=== PATIENT | female | born 1955 | race Caucasian/White ===

== ENCOUNTER → 2016-09-13 | Outpatient (CLI) | payer OTHER | LOC: FIMAGING 13:11 | PROVIDERS: ATTEND Family Medicine | DX: Z12.31 Encounter for screening mammogram for malignant neoplasm of breast (principal) | CPT/HCPCS: G0202 ==

== ENCOUNTER 2018-01-31 10:26 | Inpatient (IN) | payer OTHER ==
[~2018-01-31 10:26] MED LIST: TRANEXAMIC ACID 1,000 MG in NS 100 ML IV ONE; VANCOMYCIN 750 MG in D5W 150 ML IV ONE; VANCOMYCIN PHARMACY TO DOSE MISC ONE
[2018-01-31] MEDS ORDERED: LR 1,000 ML IV SCH (10:45)
[2018-01-31] MEDS ORDERED: LIDOCAINE 1% 2 ML INJ ID PRN (10:46)
[2018-01-31] MEDS ORDERED: LR 1,000 ML IV ONE (10:46)
[2018-01-31] MEDS ORDERED: TOBRAMYCIN SULFATE ONE (11:27)
--- NOTE | 2018-01-31 11:28 | PDHPUP ---
History & Physical Update H&P update statement: This history and physical update is based on an assessment of the patient which was completed after admission or registration (within 24 hours), but prior to the surgery/procedure. H&P update: H&P reviewed & patient examined, no change in patient's condition since H&P completed (Patient seen/examined in conjunction with Dr. Armijo.)
[2018-01-31] MEDS ORDERED: BUPIVACAINE 0.25% 30 ML SDV ONE (12:10)
[2018-01-31] MEDS ORDERED: MIDAZOLAM 2 MG/2 ML VIAL IVP ONE (12:10)
--- NOTE | 2018-01-31 12:10 | PDANEPAE ---
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 LLE with some numbness, tingling r/t back surgery - Endocrine History Hx Diabetes: No Endocrine History Comment: HYPOTHYROID - Renal History Hx Renal Disorders: No - Liver History Hx Hepatic Disorders: No - Neurological & Psychiatric Hx Hx Neurological and Psychiatric Disorders: No Neurological / Psychiatric History Comment: SITUATIONAL ANXIETY - Cancer History Hx Cancer: No - Congenital Disorder History Hx Congenital Disorders: No - GI History Hx Gastrointestinal Disorders: Yes Gastrointestinal History Comment: GERD - Other Health History Other Health History: HX ANEMIA - WAS TAKING LARGE AMT IBUPROFEN. Right shoulder joint infection - Chronic Pain History Chronic Pain: Yes (R SHOULDER, BACK, SCIATICA) - Surgical History Prior Surgeries: HYSTERECTOMY. R TKA. R SHOULDER REPLACEMENT. SPINAL SURG- LAMINECTOMY & FUSION. BUNIONECTOMY. BREAST REDUCTION. L KNEE SCOPE. CARPAL TUNNEL BRIT. FINGER SURGERIES ANE Review of Systems Review of Systems: - Exercise capacity METS (RN): 4 METS ANE Patient History - Allergies Allergies/Adverse Reactions: adhesive tape [Adhesive Tape] Allergy (Verified 01/26/18 12:31) skin tears & sloughs cephalexin monohydrate [From Keflex] Allergy (Verified 01/26/18 12:31) Rash Sulfa (Sulfonamide Antibiotics) Allergy (Verified 01/26/18 12:31) Rash - Home Medications Home medications: home medication list seen and reviewed Home Medications: Calcium Carbonate [Oyster Shell Calcium 500 mg (*)] 500 mg PO BID 11/06/17 [ Last Taken 01/26/18] Cetirizine [ZyrTEC 10 mg (*)] 10 mg PO DAILY 11/06/17 [Last Taken 01/31/18 07:00 ] Cholecalciferol Vit D3 [Vitamin D3 (*)] 2,000 units PO DAILY 11/06/17 [Last Taken 01/26/18] Cyclobenzaprine [Flexeril 10 MG (*)] 10 mg PO HS 11/06/17 [Last Taken 01/30/18 23:59] Ibuprofen [Motrin (*)] 200 mg PO 5XD 11/06/17 [Last Taken 01/26/18] Magnesium Oxide [Magnesium Oxide 400 mg (*)] 800 mg PO DAILY@12 11/06/17 [Last Taken 01/26/18] Multivitamins [Multivitamin (*)] 1 each PO DAILY 11/06/17 [Last Taken 01/26/18] Niacin [Niacin 500 mg (*)] 500 mg PO BID 11/06/17 [Last Taken 01/26/18] Teriparatide [Forteo] 2.4 ml SQ DAILY@15 11/06/17 [Last Taken 01/30/18 14:00] traMADol [Ultram 50 mg (*)] 50 mg PO 5XD 11/06/17 [Last Taken 01/31/18 07:00] Ferrous Sulfate [Ferrous Sulf 325 MG (*)] 325 mg PO DAILY18 01/24/18 [Last Taken 01/26/18] Levothyroxine [Synthroid 50 mcg (*)] 50 mcg PO DAILY06 01/24/18 [Last Taken 02:00] Magnesium Oxide [Magnesium Oxide 400 mg (*)] 400 mg PO DAILY18 01/24/18 [Last Taken 01/26/18] Pseudoephedrine HCl [Sudafed] 30 mg PO BID 01/24/18 [Last Taken 01/31/18 07:00] Ranitidine HCl [Zantac] 150 mg PO DAILY 01/26/18 [Last Taken 01/30/18] - NPO status NPO Since - Liquids (Date): 01/31/18 NPO Since - Liquids (Time): 09:00 NPO Since - Solids (Date): 01/30/18 NPO Since - Solids (Time): 23:00 - Smoking Hx Smoking Status: Never smoked - Family Anes Hx Family Hx Anesthesia Complications: NEG ANE Labs/Vital Signs - Vital Signs Blood Pressure: 165/95 Heart Rate: 96 Respiratory Rate: 17 O2 Sat (%): 94 Height: 5 ft Weight: 43.091 kg ANE Physical Exam - Airway Neck exam: FROM Mallampati Score: Class 2 Mouth exam: normal dental/mouth exam - Pulmonary Pulmonary: no respiratory distress - Cardiovascular Cardiovascular: regular rate and rhythym - ASA Status ASA Status: II ANE Anesthesia Plan Anesthesia Plan: general endotracheal anesthesia Regional Anesthesia: single shot NB
[2018-01-31] MEDS ORDERED: EPINEPHrine 1 MG/ML INJ ONE (12:11)
[2018-01-31] MEDS ORDERED: BACITRACIN 50,000 UNITS/10 ML SYR IRR ONE (12:11)
[2018-01-31] MEDS ORDERED: PROPOFOL/EMULSION 500 MG/50 ML BOTTLE IV ONE (12:19)
[2018-01-31] MEDS ORDERED: fentaNYL 250 MCG/5 ML INJ ONE (12:22)
[2018-01-31] MEDS ORDERED: VANCOMYCIN 1 GM VIAL ONE (12:25)
[2018-01-31] MEDS ORDERED: HYDROmorphONE/DILAUDID 2 MG/ML INJ IVP PRN (16:25)
[2018-01-31] MEDS ORDERED: ONDANSETRON 4 MG/2 ML VIAL IVP PRN (16:25)
[2018-01-31] MEDS ORDERED: fentaNYL 100 MCG/2 ML INJ IVP PRN (16:25)
[2018-01-31] MEDS ORDERED: NALOXONE HCL 0.4 MG/ML INJ IVP PRN (16:25)
--- NOTE | 2018-01-31 16:50 | POSTOPPROG ---
Post Op Note Date of Operation: 01/31/18 Surgeon: Marcelo Armijo Forder Operator: FRANKLYN Pond Anesthesiologist: Dr Tomlin Anesthesia: GET(General Endotracheal) Pre-op Diagnosis: Infected R rTSA with rachel-prosthetic fx/nonunion Post-op Diagnosis: Same Indication: Infection Procedure: R shoulder rTSA explant/HWR, I&D shoulder and humeral nonunion, spacer/IMN Findings: Periprosthetic purulent material, osteolysis, gross prosthetic loosening Inf/Abcess present in the surg proc area at time of surgery?: Yes Depth: Organ Space (R shoulder and humerus) EBL: 100-500 (100cc) Complications: None
[2018-01-31] MEDS ORDERED: oxyCODONE IR 5 MG TAB PO PRN (17:39)
[2018-01-31] MEDS ORDERED: ONDANSETRON DISINTEGRATING 4 MG TAB PO PRN (17:39)
[2018-01-31] MEDS ORDERED: OXYCODONE/APAP 5/325 TAB PO PRN (17:45)
--- NOTE | 2018-01-31 19:38 | PDMN ---
Medical Necessity Medical necessity: Pt meets inpt criteria per MD order and Musculoskeletal GRG, R shoulder rTSA explant/HWR, I&D shoulder and humeral nonunion, spacer/IMN, CPT 44274, [facility] inpt only list, approved inpt 01/31-02/01 auth # [id number]. Anticipate>2MN for above surgery/postop care.
[2018-01-31] MEDS: HYDROCODONE/APAP 5/325 TAB PO PRN (20:49)
[2018-02-01] MEDS: HYDROCODONE/APAP 5/325 TAB PO PRN ×5 (00:38→20:59)
--- NOTE | 2018-02-01 04:44 | GOP ---
DATE OF OPERATION: 01/31/2018 SURGEON: Marcelo Armijo MD HEALTH ADMINISTRATION TEACHER: Sharda Parra PA-C. ANESTHESIA: General with regional ANESTHESIOLOGIST: Dr. Tomlin. PREOPERATIVE DIAGNOSIS: 1. Infected right reverse total shoulder arthroplasty. 2. 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 POSTOPERATIVE DIAGNOSIS: 1. Infected right reverse total shoulder arthroplasty. 2. 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 PROCEDURE PERFORMED: 1. Right shoulder explantation of reverse total shoulder arthroplasty and proximal humerus cerclage wire removal. 2. Right shoulder and humeral nonunion incision, irrigation, drainage and extensive debridement. 3. Right shoulder provisional hemiarthroplasty cement antibiotic spacer with long-stem intramedullary fixation humeral shaft nonunion. FINDINGS: Atrophic nonunion at the level of the humeral shaft fracture with > 100% displacement and gross instability. There was extensive scar in this zone consistent with nonunion as well as a serous fluid collection. No obvious gross purulence at the level of the nonunion. Right shoulder was with a completely rotated 180 degree reverse total shoulder arthroplasty due to the patient's fracture and displacement of the proximal humerus. Given the positioning, the inferior glenoid neck was with significant bone loss and notching. The humeral stem was grossly loose. The glenoid prosthesis appeared consistent with limited bony ingrowth. There was significant slimy membranous layer around the glenoid base plate consistent with possible infection. There was additional extensive membrane and lining of the intramedullary canal of the humerus, particularly the proximal segment consistent with membranous layers associated with low-grade infection. All hardware was explanted without any fracture. Overall bone quality was extremely poor with extremity thin cortices , soft and fragile bone. This is consistent with her pre-op diagnosis of severe osteoporosis. SPECIMENS: A series of multiple tissue cultures were sent for aerobic, anaerobic and fungal cultures with instructions to hold these cultures for 14 days. These cultures were taken from the humeral nonunion site as well as the humeral and glenoid sides of the shoulder arthroplasty. In addition, 2 different pathology sections of tissue were taken, i.e. tissue biopsy, and sent for formal pathology at the level of the nonunion to evaluate for any kind of abnormal appearing tissue or growth that could have contributed to her fracture at the stem of her humeral prosthesis. ESTIMATED BLOOD LOSS: 100 cc. INDICATIONS: This is a 62-year-old female, who suffered a pathologic type fracture of her right humeral shaft just distal to her tip of the stem. Initial reverse shoulder arthroplasty was performed by my partner, Dr. Bolivar. The patient was initially managed nonoperatively. Due to her extensive bone loss, she was evaluated for infection by Dr. Bolivar with aspiration, which was found to be negative. She was also seen by Dr. Reich, a bone installer inspector final, who found her to have severe osteoporosis. She was started on Forteo and continues this therapy. Due to high clinical index of suspicion, I did perform an arthroscopic shoulder biopsy, which confirmed infection with Staphylococcus epidermidis and hominis. See microbiology for additional information. Given the above with consultation of the Infectious Disease service, explantation and the above-listed surgery was recommended. The risks, benefits, and alternatives were discussed with the patient. All of her questions were answered prior to surgery. Please see history and physical for additional information. Further complicating her case was that she did develop a nonunion at the fracture site, which would also be provisionally addressed at the same time of surgery. DESCRIPTION OF PROCEDURE: Yari was identified in the preop holding area, and her right shoulder was signed designating the operative site. The patient was confirmed in bilateral lower extremity BROOK[place]N hose and SCDs. 750 mg of IV vancomycin was held for provision to the patient via IV after all cultures were obtained. The patient was taken back to the operating room and placed supine on the OR table. Just prior to general anesthesia, 1 g of TXA was provided. Once the area was stabilized, the patient was carefully positioned in the beach chair position. Great care was taken to position her head and neck in neutral position by myself as well as the anesthesia physician, and as well to place abundant padding around the head for the head positioning device. Both knees were floated over a series of well-padded pillows. Foam eggcrate padding was placed around both heels and ankles. The left upper extremity was wrapped with foam eggcrates and padding from the middle upper arm through the wrist and hand with great care taken to protect the ulnar nerve. The right upper extremity was then prepped and draped in usual sterile manner. The patient's prior deltopectoral incision from her primary shoulder arthroplasty was used and this was extended approximately an additional 12 cm in order to perform an extensile approach down to the level of her humeral nonunion. A lazy-S type incision was necessary in order to extend the distal portion of her deltopectoral incision, which was somewhat medial, down to the anterolateral approach of the humerus. A full-thickness dermal incision was made with a #10 blade. Careful dissection was taken down through the subcutaneous fat. The patient had rather severe atrophy of her muscles as this upper extremity has been with limited use over the last year or greater. The prior scar bed at the level of deltopectoral approach was relatively dense. Meticulous dissection was utilized in order to dissect down to the appropriate level and interval. Due to the rotation of her humerus, the overall anatomy was greatly distorted. Meticulous and careful dissection were used throughout to assure appropriate protection of all vessels and nerves throughout the surgical site. Most proximally at the level of the rotator interval, the shoulder was entered with an arthrotomy and a swab was taken and sent for culture. Next, careful dissection was taken down along the anterior portion of the humerus. Unfortunately, the patient has relatively severe and dramatic proximal humerus bone loss. Subperiosteal dissection was taken down to the insertion of the pectoralis tendon on the proximal humerus and the pectoralis tendon was left intact. Blunt dissection with my finger was used to carefully mobilize the subdeltoid gutter and bursa. With this achieved, dissection was then taken down more distally. A standard anterolateral approach to the humerus was used distally from approximately 2 cm proximal to the nonunion site down to approximately 2 cm distal to the nonunion site. With this exposure of the bony ends and through standard brachialis splitting approach, dissection was kept lateral to the biceps. The cephalic vein was dissected free and kept medial throughout the dissection. Again, serous fluid was encountered, and this was swabbed and sent for culture. Once both sites were appropriately opened and evaluated, soft tissue cultures were taken from the periprosthetic tissues around the proximal humerus as well as the nonunion tissues around the both proximal and distal ends of the humerus. The intramedullary portion of the humerus were sent for additional cultures down to the level of the nonunion site. Once this was completed, the glenosphere was removed using standard Exactech technique. Underneath the glenosphere was significant purulent appearing slime, and this was carefully captured with a rongeur and then sent for additional culture. Once all cultures were sent, IV vancomycin was provided by the anesthesia service. The glenoid base plate was carefully removed, again using standard Exactech technique. With gentle backslapper use of their standard Jig, the glenoid was removed without any significant bone attached to the glenoid. There was no significant bone within the central cage of the glenoid prosthesis. The proximal humeral poly insert was removed using standard technique. Next, the shear nut was carefully backed away and the humeral base plate was carefully disengaged from the proximal humeral prosthetic. Next, the humeral component was found to be loose; and therefore, with careful technique, it was very gently and carefully malleted out from the intramedullary canal with great care taken to avoid any fracture to her very thin and fragile osteoporotic bone. The stem came out in its entirety with only small areas of cement left in the humeral canal. These were carefully removed with a pituitary rongeur as well as a curette. Finally, a cerclage wire was around the proximal humerus, and this was carefully dissected free of soft tissues. This was then carefully removed from the proximal humerus in its entirety without any hardware left within the shoulder. Once all hardware was removed, the shoulder was copiously irrigated with sterile saline. Distally at the level of the nonunion, further dissection was performed and only at the level of the bony ends was Subperiosteal dissection used to remove the extensive scar tissue and expose the end of the bony nonunion. There was copious scar interposed within the nonunion site, and this was carefully resected. Using no paralysis, the Bovie cautery was used very carefully in order to confirm no obvious transmission to the radial nerve as this was very close in proximity to the dissection site. Once appropriate debridement was achieved, I was able to achieve a relatively gross realignment of the humeral nonunion to eventually pass an intramedullary prosthesis. Once this was completed, I began working on the back table to create a custom sized and fit antibiotic cement spacer for this patient's humerus and shoulder while my wet process assistant head miller copiously irrigated the shoulder with a total of 3 L of bacitracin saline. On the back table, I used a 40-Setswana chest tube as well as a standard bulb syringe to create a humeral head shaped proximal portion of the cement spacer. Vancomycin and tobramycin were used in each of the 2 batches, 1 for the intramedullary portion and the other for the head portion. A threaded Steinmann pin was bent to approximately 135 degrees in order to create this spacer appropriately fitted for the patient's anatomy. The distal section of the humerus required reaming with a standard iogynech drapery sewer hand in order to open the proximal aspect of this canal, i.e. the nonunion site to an appropriate diameter of approximately 10 mm in order to fit this 9 mm diameter intramedullary shaft of the spacer. Once all work was completed, the spacer was carefully positioned in proximal to distal manner, i.e., advanced down through the intramedullary canal of the proximal humeral segment and then across the nonunion site into the distal humeral segment. This was performed with the shoulder in appropriate rotation based on overall epicondylar axis of the elbow as well as the shape and morphology of the nonunion and palpation of what was left of the proximal bicipital groove. The prosthesis was placed in approximately 20 degrees of retroversion in order to reapproximate normal anatomy. Due to the extensive scar and deformity of the glenoid, relatively poor reduction was achieved; however, things were generally well lined up. Once this was completed and the provisional fixation of the nonunion as well as the spacer was in place, the shoulder was reduced and taken through range of motion and found to be of appropriate quality and position. Closure was then begun. The capsular split, i.e. rotator interval and down through what was previously subscapularis and capsule, were carefully repaired with multiple #1 PDS sutures. This achieved appropriate restraint to anterior escape of the spacer. Next, the deep dermal layer of the wound was closed with multiple interrupted 2-0 PDS sutures. The skin was formally closed with tyrone. Meticulous hemostasis was maintained throughout the surgery; and therefore, no drain was indicated. Postoperative sterile surgical dressings were applied. The right upper extremity was positioned across the patient's abdomen with the elbow flexed approximately 90 degrees in a shoulder immobilizer. She was then returned to the supine position. The anesthesia service then took over and woke the patient up. TOURNIQUET TIME: None. DRAINS: None. IMPLANTS: I created a custom-sized and fit right shoulder antibiotic impregnated cement hemiarthroplasty in order to provide local elution of antibiotics at the level of the humeral shaft nonunion and shoulder, while providing temporary and provisional stability at the nonunion site. No other implants were placed. COMPLICATIONS: None. DISPOSITION: The patient was extubated and transferred to PACU in stable condition. /[id number]/MODL MTDD
[2018-02-01] MEDS: LEVOTHYROXINE 50 MCG TAB PO SCH (04:49)
[2018-02-01 05:23] LABS: PLATELET COUNT 245 10^3/uL (150-400)
[2018-02-01 05:29] LABS: INR 0.97 (0.83-1.16); PROTIME(PATIENT) 13.1 SEC (12.0-15.0)
[2018-02-01] MEDS: ASPIRIN EC 325 MG TAB PO SCH (08:55)
[2018-02-01] MEDS: NIACIN 500 MG TAB PO SCH ×4 (08:55→18:36)
[2018-02-01] MEDS: PSEUDOEPHEDRINE HCL 30 MG TAB PO SCH ×2 (08:55→20:38)
[2018-02-01] MEDS: CETIRIZINE 10 MG TAB PO SCH (08:55)
[2018-02-01] MEDS: FAMOTIDINE 20 MG TAB PO SCH ×4 (08:55→18:36)
--- NOTE | 2018-02-01 09:38 | SOAPPROG ---
<Sharda Parra S - Last Filed: 02/01/18 10:39> SOAP Progress Note Assessment/Plan: Assessment: POD #1 s/p right shoulder hardware removal with cement placer; being followed by I/D as well regarding antibiotics. Overall doing well. Plan: Maintain dry dressing over wound site, do not change unless discussed with our office first. Contact us with abnormal bleeding/oozing/discharge, change in heat or color around wound site or of extremity. No weight bearing to right upper extremity. Maintain sling. Can begin range of motion for right wrist and hand. DVT Prophylaxis: SCDs, IS, BROOK[place]N hose, ASA 325mg daily for 2 weeks. Antibiotics: Continue recommendations per I/D, appears the plan is PICC line with her likely to D/C following PICC placement if meets floor criteria. PT/OT for ROM of right wrist and hand. Ok to D/C once stable and cleared by ID, CM, PT/OT and floor criteria; appreciate their reccs. Patient seen/discussed in conjunction with Dr. Armijo. 02/01/18 10:46 Subjective: Brother in room. Able to respond appropriately to questions. Pain is overall well controlled at this time. Has been able to ambulate and is passing flatus. Denies any abnormal numbness, tingling, change in heat or color of her extremity or around the wound site, abnormal bleeding, oozing, discharge, cramping in her calves or ankles, worsening pain, worsening change in distal ROM or strength, worsening swelling. Objective: Vital Signs Temp Pulse Resp BP Pulse Ox 36.6 C 85 14 141/77 H 97 02/01/18 07:36 02/01/18 07:36 02/01/18 07:36 02/01/18 07:36 02/01/18 07:36 Microbiology 01/31/18 15:07 Gram Stain - Final Other - Tissue 01/31/18 14:45 Gram Stain - Final Other - Tissue 01/31/18 14:24 Gram Stain - Final Other - Tissue 01/31/18 14:17 Gram Stain - Final Other - Tissue 01/31/18 14:04 Gram Stain - Final Shoulder - Tissue 01/31/18 14:06 Gram Stain - Final Arm - Eswab 01/31/18 14:02 Gram Stain - Final Synovial Fluid - Swab Laboratory Results 02/01/18 05:03 02/01/18 05:03 01/31/18 02/01/18 02/02/18 05:59 05:59 05:59 Intake Total 1950 450 Output Total 450 700 Balance 1500 -250 PT 13.1 SEC (12.0-15.0) 02/01/18 05:03 INR 0.97 (0.83-1.16) 02/01/18 05:03 AO, NAD, Non-labored breathing. No diaphoresis. SCDs and BROOK[place]N hose on and SCDs pumping B/L. MS: Right upper extremity: Dressing in place with no abnormal bleeding, oozing , discharge, change in heat or color around the dressing site or of the right upper extremity. Minimally TTP over incision site otherwise NTTP throughout. AROM: AROM not tested of the right shoulder at this time, FROM from elbow on distally and patient with ability to attempt firing of the deltoid in RUE. Strength: 5/5 ceramics instructor strength, wrist strength b/l. Did not test shoulder strength at this time due to nature of surgery. DNVI b/l with no focal deficits noted. All compartments soft. Negative passive stretch b/l with brisk cap refill b/l and no focal deficits noted. X-rays: 2 views of right humerus show spacer in shaft of humerus in good position, alignment. Labs: PMN seen at non-union site and synovium, otherwise negative to date. Will continue to monitor labs as they arrive. CRP and ESR are normal at this time. - Pending Discharge Pending Discharge Within 24 Hours: Yes Pending Discharge Date: 02/02/18 Pending Discharge Time: 11:00 ICD10 Worksheet Patient Problems: Problems Problem Status Onset Septic arthritis Acute Septic arthritis Acute <Marcelo Armijo R - Last Filed: 02/01/18 20:35> SOAP Progress Note Assessment/Plan: Assessment/Plan: Agree with above. Strict NWB RUE, complete shoulder immobilzation at all times, A/AA/PROM R elbow/hand/wrist with adducted shoulder , PT/OT. Continue VTE chemo/mechanoprophylaxis. IV vanco per ID recs, PICC line today. May be d/c'd home once IV abx plan finalized by Dr Pettit, and she clears PT/OT. F/u with me in clinic 10-14 days post-op for first out-pt evaluation. Please call with any questions. 02/01/18 20:32 Objective: Vital Signs Temp Pulse Resp BP Pulse Ox 37.4 C 108 H 16 185/97 H 96 02/01/18 20:00 02/01/18 20:00 02/01/18 20:00 02/01/18 20:00 02/01/18 20:00 Microbiology 01/31/18 15:07 Mycobacterial Smear (MARTHA) - Final Other - Tissue 01/31/18 14:45 Mycobacterial Smear (MARTHA) - Final Other - Tissue 01/31/18 14:24 Mycobacterial Smear (MARTHA) - Final Other - Tissue 01/31/18 14:17 Mycobacterial Smear (MARTHA) - Final Other - Tissue 01/31/18 14:04 Mycobacterial Smear (MARTHA) - Final Shoulder - Tissue 01/31/18 15:07 Gram Stain - Final Other - Tissue 01/31/18 14:45 Gram Stain - Final Other - Tissue 01/31/18 14:24 Gram Stain - Final Other - Tissue 01/31/18 14:17 Gram Stain - Final Other - Tissue 01/31/18 14:04 Gram Stain - Final Shoulder - Tissue 01/31/18 14:06 Gram Stain - Final Arm - Eswab 01/31/18 14:02 Gram Stain - Final Synovial Fluid - Swab Laboratory Results 02/01/18 05:03 02/01/18 05:03 01/31/18 02/01/18 02/02/18 05:59 05:59 05:59 Intake Total 1950 450 Output Total 450 1500 Balance 1500 -1050 PT 13.1 SEC (12.0-15.0) 02/01/18 05:03 INR 0.97 (0.83-1.16) 02/01/18 05:03 Exam by me (ANANT) with dsgs c/d/i. LT sensation intact over deltoid and throughout forearm. Axillary motor function intact. DNVI BUEs w/o deficit. Palpable radial pulse, WWP w/ brick CR.
--- NOTE | 2018-02-01 10:05 | ASMTCMCOM ---
CM Note CM Note Notes: Patient is POD #1 right shoulder hardware removal and cement placer. She lives with her brother, who is available 07/11. PT has cleared her for home. No d/c needs identifed; Case Management available if this changes. Date Signed: 02/01/2018 10:04 AM Electronically Signed By:Bridgette Robledo RN
[2018-02-01] MEDS ORDERED: ALTEPLASE 2 MG VIAL IVP PRN (10:17)
--- NOTE | 2018-02-01 10:23 | PCMIDPN ---
Assessment/Plan: 1. Septic arthritis of right shoulder arthroplasty postop day 1 status post explantation of hardware and cerclage wires with cement spacer placement: Multiple cultures are pending. Continue vancomycin as is. Will need 6 weeks of intravenous antibiotics moving forward, with PICC line placement today. Talked to the patient and her brother about this; she expressed understanding. Will also alert social work, as patient is hoping to go home tomorrow. 2. Miscellaneous: Serum IgG level was on the low side in September. Will repeat today. Over 40 min spent with this patient today. 02/01/18 10:20 Subjective: History reviewed with patient, and in chart. Reviewed my colleague, Dr. Briceno's note in [address] dated December 19, 2017. Patient with longstanding history of osteoporosis. Sustained traumatic injury with a fall x2 in 2012. In November 2013 had an attempted rotator cuff repair that failed. In August 2014 a shoulder prosthesis was placed. She then fractured that and this November underwent an open biopsy with concern for underlying prosthetic joint infection. 2 different coagulase-negative staphylococci were isolated, which were felt to be not meaningful. She is now postop day 1 status post explantation of all of the hardware and wires, with plans on a 2 step revision procedure. Patient is frustrated about this entire course of events. She is right handed, and tells me that her quality of life has been significantly affected by this. Objective: Vancomycin 750 mg IV daily day 2 No fevers Vital Signs Temp Pulse Resp BP Pulse Ox 36.6 C 85 14 141/77 H 97 02/01/18 07:36 02/01/18 07:36 02/01/18 07:36 02/01/18 07:36 02/01/18 07:36 Microbiology 01/31/18 15:07 Gram Stain - Final Other - Tissue 01/31/18 14:45 Gram Stain - Final Other - Tissue 01/31/18 14:24 Gram Stain - Final Other - Tissue 01/31/18 14:17 Gram Stain - Final Other - Tissue 01/31/18 14:04 Gram Stain - Final Shoulder - Tissue 01/31/18 14:06 Gram Stain - Final Arm - Eswab 01/31/18 14:02 Gram Stain - Final Synovial Fluid - Swab Laboratory Results 02/01/18 05:03 02/01/18 05:03 01/31/18 02/01/18 02/02/18 05:59 05:59 05:59 Intake Total 1950 450 Output Total 450 700 Balance 1500 -250 ESR 4 MM/HR (0-30) 01/31/18 19:37 C-Reactive Protein < 5.0 mg/L (<10.0) 01/31/18 19:37 ESR and CRP are flat Multiple cultures from shoulder explantation pending - Physical Exam General Appearance: no apparent distress, cachetic EENT: pharynx normal, No thrush Respiratory: lungs clear Cardiac/Chest: regular rate, rhythm, systolic murmur Extremities: other (Right shoulder is wrapped; I did not take the dressing down. ) Abdomen: non-tender, soft Skin: No rash Neuro/Psych: oriented x 3 ICD10 Worksheet Patient Problems: Problems Problem Status Onset Septic arthritis Acute Septic arthritis Acute - ICD10 Problem Qualifiers (1) Septic arthritis (2) Septic arthritis
--- NOTE | 2018-02-01 10:29 | PDIAF ---
- Diagnosis Diagnosis: Septic arthritis right shoulder Code Status: Full Code - Medication Management Discharge Medications: Medications to Continue on Transfer Calcium Carbonate [Oyster Shell Calcium 500 mg (*)] 500 mg PO BID 11/06/17 [ Last Taken 01/26/18] Cetirizine [ZyrTEC 10 mg (*)] 10 mg PO DAILY 11/06/17 [Last Taken 01/31/18 07:00 ] Cholecalciferol Vit D3 [Vitamin D3 (*)] 2,000 units PO DAILY 11/06/17 [Last Taken 01/26/18] Cyclobenzaprine [Flexeril 10 MG (*)] 10 mg PO HS 11/06/17 [Last Taken 01/30/18 23:59] Ibuprofen [Motrin (*)] 200 mg PO 5XD 11/06/17 [Last Taken 01/26/18] Magnesium Oxide [Magnesium Oxide 400 mg (*)] 800 mg PO DAILY@12 11/06/17 [Last Taken 01/26/18] Multivitamins [Multivitamin (*)] 1 each PO DAILY 11/06/17 [Last Taken 01/26/18] Niacin [Niacin 500 mg (*)] 500 mg PO BID 11/06/17 [Last Taken 01/26/18] Teriparatide [Forteo] 2.4 ml SQ DAILY@15 11/06/17 [Last Taken 01/30/18 14:00] traMADol [Ultram 50 mg (*)] 50 mg PO 5XD 11/06/17 [Last Taken 01/31/18 07:00] Ferrous Sulfate [Ferrous Sulf 325 MG (*)] 325 mg PO DAILY18 01/24/18 [Last Taken 01/26/18] Levothyroxine [Synthroid 50 mcg (*)] 50 mcg PO DAILY06 01/24/18 [Last Taken 02:00] Magnesium Oxide [Magnesium Oxide 400 mg (*)] 400 mg PO DAILY18 01/24/18 [Last Taken 01/26/18] Pseudoephedrine HCl [Sudafed] 30 mg PO BID 01/24/18 [Last Taken 01/31/18 07:00] Ranitidine HCl [Zantac] 150 mg PO DAILY 01/26/18 [Last Taken 01/30/18] Group Home Antibiotics: Vancomycin 750 mg IV daily 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 PICC Care - Routine: Yes - Labs/Radiology CBC w/diff Date: 02/05/18 (Please fax to Dr. Briceno [phone] needs weekly cbc) CMP Date: 02/05/18 (fax to [phone] needs weekly) Vanco Trough Date and Time: February 05, weekly, fax to Dr. Briceno [phone] - Follow Up Care Current Providers and Referrals: Marcelo Armijo MD [Medical Doctor] - Lisa Karimi PA [Primary Care Provider] - Yong Briceno MD [Medical Doctor] - ([facility]. Patient has an appointment with Dr. Briceno February 15 at 11:00 a.m.)
--- NOTE | 2018-02-01 10:52 | POSTANESTH ---
Post Anesthetic Evaluation Cardiovascular Status: Normal, Stable Respiratory Status: Normal, Stable Level of Consciousness/Mental Status: Can Participate in Eval Pain Control: Adequate, Prn Tx Ordered Nausea/Vomiting Control: Adequate, Prn Tx Ordered Complications Possibly Related to Anesthesia: None Noted
--- NOTE | 2018-02-01 11:42 | ASMTCMCOM ---
CM Note CM Note Notes: Per ID, patient will need home IV antibiotics. Referral sent to [facility], and Erika from [facility] met with patient. She will also arrange a home attendant. No PT/OT needs identified. Possible d/c tomorrow. Case Management will follow. Date Signed: 02/01/2018 11:41 AM Electronically Signed By:Bridgette Robledo RN
[2018-02-01] MEDS: VANCOMYCIN 750 MG in D5W 150 ML IV SCH (14:47)
[2018-02-01] MEDS: traMADol 50 MG TAB PO PRN (17:11)
[2018-02-02] MEDS: HYDROCODONE/APAP 5/325 TAB PO PRN ×3 (05:23→18:22)
[2018-02-02] MEDS: LEVOTHYROXINE 50 MCG TAB PO SCH (05:23)
[2018-02-02] MEDS: PSEUDOEPHEDRINE HCL 30 MG TAB PO SCH ×2 (08:38→22:27)
[2018-02-02] MEDS: ASPIRIN EC 325 MG TAB PO SCH (08:38)
[2018-02-02] MEDS: CETIRIZINE 10 MG TAB PO SCH (08:38)
--- NOTE | 2018-02-02 08:41 | SOAPPROG ---
SOAP Progress Note Assessment/Plan: Assessment: POD #2 s/p right shoulder hardware removal with cement placer; being followed by I/D as well regarding antibiotics, PICC line has been placed. Overall doing well but is complaining of bilateral leg cramping. Plan: STAT U/S of bilateral lower extremities has been ordered, will not D/C her until after results. Maintain dry dressing over wound site, do not change unless discussed with our office first. Contact us with abnormal bleeding/oozing/discharge, change in heat or color around wound site or of extremity. No weight bearing to right upper extremity. Maintain sling. Can begin range of motion for right wrist and hand. DVT Prophylaxis: SCDs, IS, BR[place] hose, ASA 325mg daily for 2 weeks. Antibiotics: Continue recommendations per I/D, maintain PICC line and antibiotics per their reccs. Appreciate their reccs. Ok to D/C once stable and cleared by ID, CM, PT/OT and floor criteria; appreciate their reccs. Patient seen/discussed in conjunction with Dr. Armijo. 02/02/18 08:37 Subjective: Alone in room, sitting up in chair. Able to respond appropriately to questions. Pain is overall well controlled at this time. Has been able to ambulate and is passing flatus. At this morning's visit she is describing bilateral cramping in her calves which she states is new onset, left greater than right. States pain occurs when she is attempting to rise and/or ambulate after prolonged periods of being in bed. Denies any worsening cough, congestion, chest pain, abnormal numbness, tingling , change in heat or color of her extremity or around the wound site, abnormal bleeding, oozing, discharge, worsening pain, worsening change in distal ROM or strength, worsening swelling. Objective: Vital Signs Temp Pulse Resp BP Pulse Ox 36.8 C 79 16 158/72 H 99 02/02/18 07:11 02/02/18 07:11 02/02/18 07:11 02/02/18 07:11 02/02/18 07:11 Microbiology 01/31/18 15:07 Mycobacterial Smear (MARTHA) - Final Other - Tissue 01/31/18 14:45 Mycobacterial Smear (MARTHA) - Final Other - Tissue 01/31/18 14:24 Mycobacterial Smear (MARTHA) - Final Other - Tissue 01/31/18 14:17 Mycobacterial Smear (MARTHA) - Final Other - Tissue 01/31/18 14:04 Mycobacterial Smear (MARTHA) - Final Shoulder - Tissue 01/31/18 15:07 Gram Stain - Final Other - Tissue 01/31/18 14:45 Gram Stain - Final Other - Tissue 01/31/18 14:24 Gram Stain - Final Other - Tissue 01/31/18 14:17 Gram Stain - Final Other - Tissue 01/31/18 14:04 Gram Stain - Final Shoulder - Tissue 01/31/18 14:06 Gram Stain - Final Arm - Eswab 01/31/18 14:02 Gram Stain - Final Synovial Fluid - Swab Laboratory Results 02/01/18 05:03 02/01/18 05:03 02/01/18 02/02/18 02/03/18 05:59 05:59 05:59 Intake Total 1950 850 Output Total 450 1500 200 Balance 1500 -650 -200 PT 13.1 SEC (12.0-15.0) 02/01/18 05:03 INR 0.97 (0.83-1.16) 02/01/18 05:03 AO, NAD, Non-labored breathing. No diaphoresis. SCDs and [place] hose on and SCDs pumping B/L. MS: Right upper extremity: Dressing in place with no abnormal bleeding, oozing , discharge, change in heat or color around the dressing site or of the right upper extremity. Minimally TTP over incision site otherwise NTTP throughout. AROM: AROM not tested of the right shoulder at this time, FROM from elbow on distally and patient has the ability to attempt firing of the deltoid in RUE. 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 Did not test shoulder strength at this time due to nature of surgery. DNVI b/l with no focal deficits noted. All compartments soft. Negative passive stretch b/l with brisk cap refill b/l and no focal deficits noted. Calves soft and supple b/l with mild calf tenderness in left side; mildly positive b/l Homans. Brisk cap refill distally b/l and DNVI b/l. X-rays: 2 views of right humerus show spacer in shaft of humerus in good position, alignment. Labs: PMN seen at non-union site and synovium, otherwise still negative to date. Will continue to monitor labs as they arrive. CRP and ESR are normal at this time. - Pending Discharge Pending Discharge Within 24 Hours: Yes Pending Discharge Date: 02/03/18 Pending Discharge Time: 11:00 ICD10 Worksheet Patient Problems: Problems Problem Status Onset Septic arthritis Acute Septic arthritis Acute
[2018-02-02] MEDS: traMADol 50 MG TAB PO PRN ×2 (08:49→22:27)
--- NOTE | 2018-02-02 10:40 | PCMIDPN ---
Assessment/Plan: 1. Septic arthritis of right shoulder arthroplasty postop day 1 status post explantation of hardware and cerclage wires with cement spacer placement: Multiple cultures are pending. Continue vancomycin as is. Will need 6 weeks of intravenous antibiotics moving forward. Awaiting Vanco trough (to be done later this pm) then likely home tomorrow morning given logistics with antibiotic delivery. [employer] done. Asked SW to go talk to pt (Raina), as she had multiple questions about discharge. 2. Miscellaneous: Serum IgG level was on the low side in September. Repeat Ig's pending. Subjective: no overnight events. anxious to go home. Objective: Vanco 750 mg IV daily no fevers Vital Signs Temp Pulse Resp BP Pulse Ox 36.8 C 79 16 158/72 H 99 02/02/18 07:11 02/02/18 07:11 02/02/18 07:11 02/02/18 07:11 02/02/18 07:11 Microbiology 01/31/18 15:07 Mycobacterial Smear (MARTHA) - Final Other - Tissue 01/31/18 14:45 Mycobacterial Smear (MARTHA) - Final Other - Tissue 01/31/18 14:24 Mycobacterial Smear (MARTHA) - Final Other - Tissue 01/31/18 14:17 Mycobacterial Smear (MARTHA) - Final Other - Tissue 01/31/18 14:04 Mycobacterial Smear (MARTHA) - Final Shoulder - Tissue 01/31/18 15:07 Gram Stain - Final Other - Tissue 01/31/18 14:45 Gram Stain - Final Other - Tissue 01/31/18 14:24 Gram Stain - Final Other - Tissue 01/31/18 14:17 Gram Stain - Final Other - Tissue 01/31/18 14:04 Gram Stain - Final Shoulder - Tissue 01/31/18 14:06 Gram Stain - Final Arm - Eswab 01/31/18 14:02 Gram Stain - Final Synovial Fluid - Swab Laboratory Results 02/01/18 05:03 02/01/18 05:03 02/01/18 02/02/18 02/03/18 05:59 05:59 05:59 Intake Total 1950 850 Output Total 450 1500 700 Balance 1500 -650 -700 ESR 4 MM/HR (0-30) 01/31/18 19:37 C-Reactive Protein < 5.0 mg/L (<10.0) 01/31/18 19:37 multiple cx's pending, GS negative - Physical Exam General Appearance: no apparent distress, cachetic EENT: No scleral icterus, No thrush Extremities: other (right shoulder wrapped; I did not take down dressing) ICD10 Worksheet Patient Problems: Problems Problem Status Onset Septic arthritis Acute Septic arthritis Acute - ICD10 Problem Qualifiers (1) Septic arthritis (2) Septic arthritis
--- NOTE | 2018-02-02 12:09 | ASMTCMCOM ---
CM Note CM Note Notes: Picc report sent to jose. Pt likely d/c tomorrow. Pt resides with her brother, pt plans to take a cab home at d/c. Date Signed: 02/02/2018 12:08 PM Electronically Signed By:KEVIN Grace
[2018-02-02] MEDS: NIACIN 500 MG TAB PO SCH ×2 (12:52→18:23)
[2018-02-02] MEDS: FAMOTIDINE 20 MG TAB PO SCH ×2 (12:53→18:23)
--- NOTE | 2018-02-02 15:44 | PDIAF ---
- Diagnosis Diagnosis: Septic arthritis right shoulder Code Status: Full Code - Medication Management Discharge Medications: Medications to Continue on Transfer Calcium Carbonate [Oyster Shell Calcium 500 mg (*)] 500 mg PO BID 11/06/17 [ Last Taken 01/26/18] Cetirizine [ZyrTEC 10 mg (*)] 10 mg PO DAILY 11/06/17 [Last Taken 01/31/18 07:00 ] Cholecalciferol Vit D3 [Vitamin D3 (*)] 2,000 units PO DAILY 11/06/17 [Last Taken 01/26/18] Cyclobenzaprine [Flexeril 10 MG (*)] 10 mg PO HS 11/06/17 [Last Taken 01/30/18 23:59] Magnesium Oxide [Magnesium Oxide 400 mg (*)] 800 mg PO DAILY@12 11/06/17 [Last Taken 01/26/18] Multivitamins [Multivitamin (*)] 1 each PO DAILY 11/06/17 [Last Taken 01/26/18] Niacin [Niacin 500 mg (*)] 500 mg PO BID 11/06/17 [Last Taken 01/26/18] Teriparatide [Forteo] 2.4 ml SQ DAILY@15 11/06/17 [Last Taken 01/30/18 14:00] Ferrous Sulfate [Ferrous Sulf 325 MG (*)] 325 mg PO DAILY18 01/24/18 [Last Taken 01/26/18] Levothyroxine [Synthroid 50 mcg (*)] 50 mcg PO DAILY06 01/24/18 [Last Taken 02:00] Magnesium Oxide [Magnesium Oxide 400 mg (*)] 400 mg PO DAILY18 01/24/18 [Last Taken 01/26/18] Pseudoephedrine HCl [Sudafed 30mg (OTC)] 30 mg PO BID 01/24/18 [Last Taken 01/31 07:00] Ranitidine HCl [Zantac] 150 mg PO DAILY 01/26/18 [Last Taken 01/30/18] Hydrocodone/APAP 5/325 [[place] 5/325 (*)] 1 - 2 tab PO Q6H PRN #30 tab 02/01/18 [ Last Taken Unknown] Alf Antibiotics: Vancomycin 750 mg IV [id number] Alf Antibiotic Stop Date: 03/15/18 Discharge Medications: Refer to the Discharge Home Medication list for PRN reason. PICC Care - Routine: Yes - Orders Diet Recommendation: no restrictions on diet Diet Texture: Regular Texture Diet Additional Instructions: Regarding right shoulder: Maintain dry dressing over wound site, do not change unless discussed with our office first. Contact us with abnormal bleeding/oozing/discharge, change in heat or color around wound site or of extremity. No weight bearing to right upper extremity. Maintain sling. Can begin range of motion for right wrist and hand. DVT Prophylaxis: ASA 325mg daily for 2 weeks. Continue [place] hose for first 2 weeks post-operatively. Antibiotics: Continue recommendations per infectious disease. Follow up in clinic in 7-10 days for post-operative appointment. Contact our office, Dr. Armijo, to schedule or with additional questions/concerns which may arise. [phone]. Watch for worsening pain, abnormal numbness/tingling, change in heat/color of extremity, fever, chills, worsening change in range of motion or strength to right wrist/hand, cramping in calves or ankles and seek immediate medical attention if seen. - Labs/Radiology BMP Date: 02/08/18 (Weekly ) CBC w/diff Date: 02/05/18 (Weekly Monday) CMP Date: 02/05/18 (Weekly Monday) CRP Date: 02/05/18 (Weekly Monday) Vanco Trough Date and Time: Every Monday and start 02/05 and 02/08 Call or Fax Lab and Imaging Results to: fax to Dr. Briceno [phone] - Follow Up Care Current Providers and Referrals: Marcelo Armijo MD [Medical Doctor] - Lisa Karimi PA [Primary Care Provider] - Yong Briceno MD [Medical Doctor] - 02/15/18 11:00 am ([facility]. Patient has an appointment with Dr. Briceno February 15 at 11:00 a.m.)
[2018-02-02] MEDS: VANCOMYCIN 750 MG in D5W 150 ML IV SCH ×2 (15:53→15:57)
[2018-02-03] MEDS: HYDROCODONE/APAP 5/325 TAB PO PRN ×3 (02:09→12:57)
[2018-02-03] MEDS: VANCOMYCIN 750 MG in D5W 150 ML IV SCH ×2 (04:13→15:32)
[2018-02-03] MEDS: LEVOTHYROXINE 50 MCG TAB PO SCH (06:26)
[2018-02-03] MEDS: ASPIRIN EC 325 MG TAB PO SCH (08:44)
[2018-02-03] MEDS: CETIRIZINE 10 MG TAB PO SCH (08:45)
[2018-02-03] MEDS: PSEUDOEPHEDRINE HCL 30 MG TAB PO SCH (08:45)
[2018-02-03] MEDS: NIACIN 500 MG TAB PO SCH (12:57)
[2018-02-03] MEDS: FAMOTIDINE 20 MG TAB PO SCH (12:58)
[2018-02-03 15:50] VITALS: BP 161/93
--- NOTE | 2018-02-03 16:05 | ASMTLACE ---
LACE Length of stay for Answers: 3 days current admission Acuity / Level of Answers: Yes Care: Did the patient have an inpatient admission? Comorbidities - select Answers: Opioid dependence all that apply / Chronic pain Other Notes: Hypothyroid; GERD # of Emergency department Answers: 0 visits in the last 6 months Score: 11 Date Signed: 02/03/2018 04:04 PM Electronically Signed By:KEVIN Baltazar
[2018-02-03] MEDS: traMADol 50 MG TAB PO PRN (17:48)
== END 2018-02-03 17:51 | disposition home health service (06) | DRG 494 ==
LOC: F3E 10:26 → F3N 15:26
PROVIDERS: ADMIT Physician Assistant; ATTEND Orthopaedic Surgery
PROC: 0RPJ0JZ Removal of Synthetic Substitute from Right Shoulder Joint, Open Approach (ICD-10-PCS; principal; 2018-01-31 12:00)
PROC: 0RHJ08Z Insertion of Spacer into Right Shoulder Joint, Open Approach (ICD-10-PCS; principal; 2018-01-31 12:00)
PROC: 0PHF06Z Insertion of Intramedullary Internal Fixation Device into Right Humeral Shaft, Open Approach (ICD-10-PCS; principal; 2018-01-31 12:00)
PROC: 02HV33Z Insertion of Infusion Device into Superior Vena Cava, Percutaneous Approach (ICD-10-PCS; 2018-02-01)
DX: T84.59XA Infection and inflammatory reaction due to other internal joint prosthesis, initial encounter (principal); M97.31XD Periprosthetic fracture around internal prosthetic right shoulder joint, subsequent encounter; B95.8 Unspecified staphylococcus as the cause of diseases classified elsewhere; M81.0 Age-related osteoporosis without current pathological fracture; E03.9 Hypothyroidism, unspecified; Z96.611 Presence of right artificial shoulder joint; Z96.651 Presence of right artificial knee joint
CPT/HCPCS: 82784-90; 97116-GP; 97161-GP; 97165-GO; 97530-GO; 97535-GO; C1713; C1751; J0171; J2250; J2704; J3010; J3260; J3370